=== PATIENT | female | born 1995 | race Two or more races ===

== ENCOUNTER → 2018-09-11 | Outpatient (CLI) | payer OTHER | LOC: OD 13:51 | PROVIDERS: ATTEND Family Medicine | DX: Z32.01 Encounter for pregnancy test, result positive (principal) | CPT/HCPCS: 81025 ==

== ENCOUNTER 2019-05-20 16:44 | Outpatient (CLI) | payer OTHER | END 2019-05-20 17:27 | disposition home or self-care (01) | LOC: LC 16:44 | PROVIDERS: ATTEND Obstetrics & Gynecology | DX: O48.0 Post-term pregnancy (principal); Z3A.40 40 weeks gestation of pregnancy | CPT/HCPCS: 59025 ==

== ENCOUNTER 2019-05-26 20:35 | Inpatient (IN) | payer BC, OTHER ==
[2019-05-26 21:18] LABS: APPEARANCE,URINE SLIGHTLY-CLOUDY; BILIRUBIN,URINE NEGATIVE (NEGATIVE); COLOR,URINE YELLOW; GLUCOSE, URINE NEGATIVE (NEGATIVE); KETONES,URINE NEGATIVE (NEGATIVE); LEUKOCYTE ESTERASE,URINE NEGATIVE (NEGATIVE); NITRITE,URINE NEGATIVE (NEGATIVE); PROTEIN,URINE NEGATIVE (NEGATIVE); URINE SPECIFIC GRAVITY 1.003; UROBILINOGEN,URINE NEGATIVE mg/dL (<2.0)
[2019-05-26 21:34] LABS: URINE AMPHETAMINES SCREEN NEGATIVE; URINE BARBITURATES SCREEN NEGATIVE; URINE BENZODIAZEPINES SCREEN NEGATIVE; URINE COCAINE SCREEN NEGATIVE; URINE MARIJUANA (THC) SCREEN NEGATIVE; URINE METHADONE SCREEN NEGATIVE; URINE PHENCYCLIDINE SCREEN NEGATIVE
[2019-05-26] MEDS ORDERED: RINGERS SOLUTION,LACTATED 1,000 ML IV PRN (21:40)
[2019-05-26] MEDS ORDERED: MAG HYDROX/AL HYDROX/SIMETH SUSP 30 ML UDCUP PO PRN (21:40)
[2019-05-26] MEDS ORDERED: RINGERS SOLUTION,LACTATED 300 ML IV ONE (21:40)
[2019-05-26] MEDS ORDERED: ACETAMINOPHEN 325 MG TABLET PO PRN (21:40)
[2019-05-26] MEDS ORDERED: PENICILLIN G POTASSIUM 5,000,000 UNIT in DEXTROSE 5%-WATER 100 ML IV ONE (21:40)
[2019-05-26] MEDS ORDERED: DINOPROSTONE 10 MG VAGINAL INSERT.SR PV ONE (21:40)
[2019-05-26] MEDS ORDERED: ZOLPIDEM TARTRATE 5 MG TABLET PO PRN (21:40)
[2019-05-26 22:18] LABS: ABSOLUTE BASOPHILS # (AUTO) 0.1 10^3/uL (0.0-0.2); ABSOLUTE EOSINOPHILS # (AUTO) 0.2 10^3/uL (0.0-0.6); ABSOLUTE LYMPHOCYTES (AUTO) 1.8 10^3/uL (0.5-4.7); ABSOLUTE MONOCYTES (AUTO) 0.6 10^3/uL (0.1-1.4); ABSOLUTE NEUT (AUTO) 6.4 10^3/uL (1.7-8.2); BASOPHILS % (AUTO) 0.6 % (0-2); EOSINOPHILS % (AUTO) 1.8 % (0-6); HEMATOCRIT 38.4 % (36.0-47.0); HEMOGLOBIN 13.4 g/dL (12.0-15.5); LYMPHOCYTES % (AUTO) 20.3 % (13-45); MEAN CORPUSCULAR HEMOGLOBIN 30.6 pg (27.0-33.4); MEAN CORPUSCULAR HGB CONC 34.9 g/dL (32.0-36.0); MEAN CORPUSCULAR VOLUME 88 fl (80-97); MONOCYTES % (AUTO) 6.8 % (3-13); PLATELET COUNT 221 10^3/uL (150-450); RED BLOOD COUNT 4.38 10^6/uL (3.72-5.28); RED CELL DISTRIBUTION WIDTH 14.6 % (11.5-14.0); SEGMENTED NEUTROPHILS % (AUTO) 70.5 % (42-78); TOTAL CELLS COUNTED % (AUTO) 100 %; WHITE BLOOD COUNT 9.1 10^3/uL (4.0-10.5)
[2019-05-26] MEDS ORDERED: DINOPROSTONE 10 MG VAGINAL INSERT.SR ONE (22:33)
[2019-05-26] MEDS ORDERED: MISOPROSTOL 0.2 MG TABLET ONE (22:58)
[2019-05-26] MEDS ORDERED: LIDOCAINE 1% INJ-PF (10 MG/ML) 30 ML SDV ONE (22:58)
[2019-05-26] MEDS ORDERED: OXYTOCIN/NORMAL SALINE 20 UNIT/1,000 ML RTUINJ ONE (22:58)
[2019-05-26] MEDS ORDERED: OXYTOCIN 10 UNIT/ML VIAL ONE (22:58)
[2019-05-26] MEDS ORDERED: ZOLPIDEM TARTRATE 5 MG TABLET ONE (23:38)
[2019-05-27] MEDS ORDERED: PENICILLIN G POTASSIUM 2,500,000 UNIT in DEXTROSE 5%-WATER 50 ML IV SCH (01:40)
[2019-05-27] MEDS ORDERED: HYDROMORPHONE HCL INJ/PF 2 MG/ML AMPULE IV ONE (05:59)
[2019-05-27] MEDS ORDERED: PROMETHAZINE HCL INJ 25 MG/1 ML VIAL IV ONE (06:00)
[2019-05-27] MEDS ORDERED: HYDROMORPHONE HCL INJ/PF 2 MG/ML AMPULE ONE (06:02)
[2019-05-27] MEDS ORDERED: PROMETHAZINE HCL INJ 25 MG/1 ML VIAL ONE (06:02)
--- NOTE | 2019-05-27 07:25 | Admission Physical ---
Datetime Report Generated by CPN: 05/27/2019 07:25 CURRENT ADMISSION Chief Complaint: Uterine Contractions; Scheduled Induction of Labor Indication for Induction: Post Dates Admit Impression : Term, Intrauterine ; Induction of Labor Admit Impression- Other: patient here for a r/o labor and during her evaluation the FHTs showed evidence of decel. Therefore Admit Plan: Admit to Unit; Initiate Labor Induction Protocol ALLERGIES Medication Allergies: Yes Medication Allergies: codeine (05/26/2019) Latex: No Latex Allergies Food Allergies: none Environmental Allergies: none OBSTETRICAL HISTORY EDC: 05/19/2019 00:00 : 1 Para: 0 Gestational Diabetes: No Rh Sensitization: No Incompetent Cervix: No AMANDA: No Infertility: No ART Treatment: No Uterine Anomaly: No IUGR: No Hx Previous C/S: No Macrosomia: No Hx Loss/Stillborn: No PIH: No Hx : No Placenta Previa/Abruption: No Depression/PP Depression: No PTL/PROM: No Post Hemorrhage: No Current Procedures: Ultrasound; NST Obstetrical History Comments: G1-Current SEE RECORDS Alcohol: No Marijuana : No Cocaine: No Other Illicit Drugs: No Cigarettes: Never Smoker. [id number] MEDICAL HISTORY Diabetes: No Blood Transfusion: No Pulmonary Disease (Asthma, TB): No Breast Disease: No Hypertension: No Motor Boss Surgery: No Heart Disease: No Hosp/Surgery: Yes Autoimmune Disorder: No Kidney Disease: No Abnormal Pap Smear: No Neuro/Epilepsy: No Psychiatric Disorders: No Other Medical Diseases: No Hepatitis/Liver Disease: No Significant Family History: No Varicosities/Phlebitis: No Trauma/Violence : No Thyroid Dysfunction: No Medical History Comments: Tooth Extraction, scoliosis INFECTIOUS HISTORY Gonorrhea: No Genital Herpes: No Chlamydia: No Tuberculosis: No Syphilis: No Hepatitis: No HIV/AIDS Exposure: No Rash or Viral Illness: No HPV: No PHYSICAL EXAM General: Normal HEENT: Normal Neurologic: Normal Thyroid: Normal Heart: Normal Lungs: Normal Breast: Normal Back: Normal Abdomen: Normal Genitourinary Exam: Normal Extremities: Normal DTRs: Normal Pelvic Type: Adequate VAGINAL EXAM Dilatation: 1 Effacement: 90 Station: -2 MEMBRANES Pooling: Negative Membranes: Intact FETUS A EGA: 41.1 Monitoring: External US FHR- Baseline: 150 Variability: Moderate 6-25bpm Accelerations: 15X15 Decelerations: Prolonged FHR Category: Category II Estimated Weight (gm): 3800 Presentation: Vertex Admit Comment: went ahead and admitted patient and placed cervidil for cervix ripening. she has had occasional decels that have been easily recoverable. will continue to watch cervidil removed at 645 this am. PLANS FOR LABOR AND DELIVERY Labor and Delivery: None Pain Management: Epidural Feeding Preference: Both Benefit of Breast Feed Discussed: Yes Circumcision: Yes INFORMED CONSENT Signature: with User ID: [email or web address]
[2019-05-27] MEDS ORDERED: PENICILLIN G POTASSIUM 5,000,000 UNIT in DEXTROSE 5%-WATER 100 ML IV ONE (08:00)
[2019-05-27] MEDS ORDERED: EPHEDRINE SULFATE INJ 50 MG/1 ML AMPULE ONE (08:24)
[2019-05-27] MEDS ORDERED: FENTANYL/BUPIVACAINE/NS/PF 300 MCG/150 ML RTUINJ EPI ONE (08:25)
[2019-05-27] MEDS ORDERED: BUPIVACAINE HCL 0.25 % INJ/PF (2.5 MG/1 ML) 30 ML VIAL ONE (08:25)
[2019-05-27] MEDS ORDERED: OXYTOCIN/NORMAL SALINE 20 UNIT/1,000 ML RTUINJ IV PRN ×2 (12:11→15:51)
[2019-05-27] MEDS: PENICILLIN G POTASSIUM 2,500,000 UNIT in DEXTROSE 5%-WATER 50 ML IV SCH ×2 (12:36→16:28)
[2019-05-27] MEDS ORDERED: BENZOCAINE/MENTHOL AEROSOL SPRAY 56 ML TOP PRN (15:51)
[2019-05-27] MEDS ORDERED: DIBUCAINE 1% OINTMENT 28 GM TP PRN (15:51)
[2019-05-27] MEDS ORDERED: MEASLES,MUMPS&RUBELLA VACC/PF 0.5 ML VIAL SUBCUT PRN (15:51)
[2019-05-27] MEDS ORDERED: DIPH/PERTUSS(ACELL)/TETANUS VAC/PF 0.5 ML SYR (>=10YO) IM PRN (15:51)
[2019-05-27] MEDS ORDERED: ACETAMINOPHEN 325 MG TABLET PO PRN (15:53)
[2019-05-27] MEDS ORDERED: IBUPROFEN 800 MG TABLET ONE (16:29)
[2019-05-27] MEDS: IBUPROFEN 800 MG TABLET PO SCH (16:31)
--- NOTE | 2019-05-27 16:37 | Delivery Summary ---
Del Sum A-C Datetime Report Generated by CPN: 05/27/2019 16:37 DELIVERY PERSONNEL DELIVERY PERSONNEL: [id number] Delivery Doctor:: Padmini Power CNM Nurse Fuller Brush Man Certified:: Padmini Power CNM Labor and Delivery Nurse:: Lizet Gillespie RNchildhood teacher Nurse:: FLORENTINO Wahl Nursery Nurse:: Emma Howard RN Instructional Paraprofessional/EDITOR MANAGING NEWSPAPER: Carol Johnson, ST Instructional Paraprofessional/EDITOR MANAGING NEWSPAPER: Veronica Esa DIRECTOR INDUSTRIAL MUSEUM MATERNAL INFORMATION Delivery Anesthesia: Epidural Medications After Delivery: Pitocin Bolus-Please Comment Delivery QBL: 539 Maternal Complications: None Provider Comments: of VMI,delivered BC, vigorous and crying in stable condition., Cord clamped and cut after one minute. Cord blood collected. Placenta S/C/I, ff w/ decreased lochia, IV Pitocin infusing. Repair of bilateral labial lacerations. Mother and baby left in stable condition, skin to skin. Pt plans to breastfeed. Apgars 9,9. QBL pending LABOR SUMMARY EDC: 05/19/2019 00:00 No. Babies in Womb: 1 Attempted: No Labor Anesthesia: Epidural LABOR INFORMATION Reason for Induction: Post Dates Onset of Labor: 05/27/2019 06:45 Complete Dilatation: 05/27/2019 14:50 Oxytocin: Induction Group B Beta Strep: Positive Antibiotics # of Doses: 2 Antibiotics Time of Last Dose: 1228 Name of Antibiotic Given: penicillin Steroids Given: None Reason Steroids Not Administered: Not Applicable MEMBRANES Membranes Rupture Method: Artificial Rupture of Membranes: 05/27/2019 12:46 Length of Rupture (hr): 2.62 Amniotic Fluid Color: Light Meconium Amniotic Fluid Amount: Scant Amniotic Fluid Odor: None STAGES OF LABOR Stage 1 hr: 8 Stage 1 min: 5 Stage 2 hr: 0 Stage 2 min: 33 Stage 3 hr: 0 Stage 3 min: 4 Total Time in Labor hr: 8 Total Time in Labor min: 42 VAGINAL DELIVERY Episiotomy: None Laceration #1: Vaginal Laceration Extension #1: First Degree Laceration Repair: Yes Laceration Repair Note: Bilateral labial lacs repaired using 3.0 vicryl, pt tolerated well Sponge Count Correct: Yes Sharps Count Correct: Yes BABY A INFORMATION Delivery Date/Time: 05/27/2019 15:23 Method of Delivery: Vaginal Nurse Controlled Delivery: No Born in Route : No : N/A Forceps: N/A Vacuum Extraction: N/A Shoulder Dystocia : No PRESENTATION/POSITION BABY A Presentation: Cephalic Cephalic Presentation: Vertex Vertex Position: Left Occipital Anterior Breech Presentation: N/A PLACENTA INFORMATION BABY A Placenta Delivery Time : 05/27/2019 15:27 Placenta Method of Delivery: Spontaneous Placenta Status: Delivered SCORES BABY A Heart Rate 1 min: >100 bpm Resp Effort 1 min: Good Cry Reflex Irritability 1 min: Cough or Sneeze or Pulls Away Muscle Tone 1 min: Active Motion Color 1 min: Body [place], Extremities Blue Resuscitation Effort 1 min: Tactile Stimulation SCORE 1 MIN: 9 Heart Rate 5 min: >100 bpm Resp Effort 5 min: Good Cry Reflex Irritability 5 min: Cough or Sneeze or Pulls Away Muscle Tone 5 min: Active Motion Color 5 min: Body [place], Extremities Blue Resuscitation Effort 5 min: Tactile Stimulation SCORE 5 MIN: 9 INFANT INFORMATION BABY A Gestational Age at Delivery: 41.1 Gestational Status: Late Term- 41- 41.6 Weeks Infant Outcome : Liveborn Condition : Stable Sex: Male IDENTIFICATION BABY A Infant Verification Date/Time: 05/27/2019 15:34 ID Band Number: [id number] Mother's Name Verified: Yes Infant RN Verifying : D Bellavance RN/A Mobile RN WEIGHT/LENGTH BABY A Birthweight (gm): 3100 Weight (lb): 6 Weight (oz): 13 Infant Length (in): 19.50 Infant Length (cm): 49.53 CORD INFORMATION BABY A No. Cord Vessels: 3 Nuchal Cord : N/A Cord Blood Taken: Yes-For Storage (Mom's Blood type +) Suction: Mouth; Nose ASSESSMENT BABY A Complications: Multiple Late Decels; Multiple Variable Decels Physical Findings at Delivery: Molding of the Head Infant Respirations: Appears Normal Skin to Skin: Yes Skin to Skin Time (min): 60 Lube Worker/ALS Called : Yes Care By: Sallie Howard RN Transferred To: Remains with Mother SIGNATURES Assignment: Julianna Reeves MD Signature: with User ID: [email or web address] : with User ID: [email or web address]
[2019-05-27] MEDS: DOCUSATE SODIUM 100 MG CAPSULE PO SCH (18:27)
[2019-05-27] MEDS: FERROUS SULFATE 325 MG TABLET PO SCH (18:27)
[2019-05-28] MEDS: IBUPROFEN 800 MG TABLET PO SCH ×4 (01:45→22:09)
[2019-05-28 07:00] LABS: HEMATOCRIT 28.3 % (36.0-47.0); MEAN CORPUSCULAR HEMOGLOBIN 30.7 pg (27.0-33.4); MEAN CORPUSCULAR HGB CONC 35.2 g/dL (32.0-36.0); MEAN CORPUSCULAR VOLUME 87 fl (80-97); PLATELET COUNT 160 10^3/uL (150-450); RED BLOOD COUNT 3.24 10^6/uL (3.72-5.28); RED CELL DISTRIBUTION WIDTH 14.6 % (11.5-14.0); WHITE BLOOD COUNT 13.7 10^3/uL (4.0-10.5)
[2019-05-28] MEDS: PRENATAL VITAMIN W DHA CAPSULE PO SCH (09:45)
[2019-05-28] MEDS: FERROUS SULFATE 325 MG TABLET PO SCH ×2 (09:45→17:33)
[2019-05-28] MEDS: DOCUSATE SODIUM 100 MG CAPSULE PO SCH ×2 (09:45→17:33)
[2019-05-28] MEDS: SENNOSIDES/DOCUSATE 8.6-50 MG 1 EACH TABLET PO SCH (09:47)
--- NOTE | 2019-05-28 10:25 | PDOC PROGRESS REPORT ---
Subjective-OB Progress Note for:: 05/28/19 Subjective: 23yo G1 now P1 s/p ppd1. Pt ambulating and voiding without difficulty. Reports pain well controlled with medications. No concerns today. Physical Exam (OB) Vital Signs: Temp Pulse Resp BP Pulse Ox 98.0 F 63 16 90/40 L 99 05/28/19 07:30 05/28/19 07:30 05/28/19 07:30 05/28/19 07:30 05/28/19 07:30 Intake & Output 05/27/19 05/28/19 05/29/19 06:59 06:59 06:59 Intake Total 800 Output Total 1100 Balance -1100 800 Weight 83.1 kg - General General Appearance: Appears well In distress: None - PIH/Pre-Eclampsia DTR's: 1 + Clonus: Negative Headache: Absent Epigastric Pain: No Visual Changes: No - Episiotomy/Laceration Site Condition: Well Approximated - Lochia Lochia Amount: Small 10-25 ml Lochia Color: Rubra/Red - Abdomen Description: Soft, Round Fundal Description: Firm, Midline Fundal Height: u/u - u/2 - Respiratory Respiratory Status: No respiratory distress - Extremities Upper extremity: Normal inspection Lower extremities: Normal inspection - Neurological Cognition: Normal Orientation: AAOx4 - Psychological Associated symptoms: Normal affect, Normal mood Objective-Diagnostic Laboratory: 05/28/19 06:42 05/28/19 06:42 WBC 13.7 H RBC 3.24 L Hgb 10.0 L D Hct 28.3 L MCV 87 MCH 30.7 MCHC 35.2 RDW 14.6 H Plt Count 160 Assessment and Plan(PN) - Assessment and Plan (1) Vaginal delivery Is this a current diagnosis for this admission?: Yes Plan: Routine pp care (2) Obstetric labial laceration, delivered, current hospitalization Is this a current diagnosis for this admission?: Yes Plan: continue to monitor for s/s of infection (3) Acute blood loss anemia Is this a current diagnosis for this admission?: Yes Plan: increase dietary iron and FeSO4 BID - Time Spent with Patient Time with patient: Less than 15 minutes Medications reviewed and adjusted accordingly: Yes - Disposition Anticipated Discharge: Home Within: within 24 hours
[2019-05-29] MEDS: IBUPROFEN 800 MG TABLET PO SCH ×2 (05:42→13:48)
[2019-05-29 08:28] VITALS: BP 108/58
[2019-05-29] MEDS: DOCUSATE SODIUM 100 MG CAPSULE PO SCH (09:26)
[2019-05-29] MEDS: PRENATAL VITAMIN W DHA CAPSULE PO SCH (09:26)
[2019-05-29] MEDS: FERROUS SULFATE 325 MG TABLET PO SCH (09:26)
[2019-05-29] MEDS: SENNOSIDES/DOCUSATE 8.6-50 MG 1 EACH TABLET PO SCH (09:26)
--- NOTE | 2019-05-29 09:56 | PDOC DISCHARGE SUMMARY ---
Impression - Admit/DC Date/PCP Admission Date/Primary Care Provider: 05/26/19 21:55 JAYE COLEMAN MD Discharge Date: 05/29/19 - Discharge Diagnosis (1) Acute blood loss anemia Is this a current diagnosis for this admission?: Yes (2) Obstetric labial laceration, delivered, current hospitalization Is this a current diagnosis for this admission?: Yes (3) Vaginal delivery Is this a current diagnosis for this admission?: Yes - Additional Information Resuscitation Status: Full Code Discharge Diet: Regular Discharge Activity: Activity As Tolerated, Pelvic Rest Referrals: JAYE COLEMAN MD [Primary Care Provider] - Prescriptions: Ibuprofen [Motrin 800 mg Tablet] 800 mg PO Q8 #60 tablet Home Medications: Vit No.130/Iron/Folic [ Tablet] 1 each PO DAILY 05/20/19 Ibuprofen [Motrin 800 mg Tablet] 800 mg PO Q8 #60 tablet 05/29/19 Results Laboratory Results: WBC 13.7 10^3/uL (4.0-10.5) H 05/28/19 06:42 RBC 3.24 10^6/uL (3.72-5.28) L 05/28/19 06:42 Hgb 10.0 g/dL (12.0-15.5) L D 05/28/19 06:42 Hct 28.3 % (36.0-47.0) L 05/28/19 06:42 MCV 87 fl (80-97) 05/28/19 06:42 MCH 30.7 pg (27.0-33.4) 05/28/19 06:42 MCHC 35.2 g/dL (32.0-36.0) 05/28/19 06:42 RDW 14.6 % (11.5-14.0) H 05/28/19 06:42 Plt Count 160 10^3/uL (150-450) 05/28/19 06:42 Lymph % (Auto) 20.3 % (13-45) 05/26/19 22:00 [place] % (Auto) 6.8 % (3-13) 05/26/19 22:00 Eos % (Auto) 1.8 % (0-6) 05/26/19 22:00 Baso % (Auto) 0.6 % (0-2) 05/26/19 22:00 Absolute Neuts (auto) 6.4 10^3/uL (1.7-8.2) 05/26/19 22:00 Absolute Lymphs (auto) 1.8 10^3/uL (0.5-4.7) 05/26/19 22:00 Absolute Monos (auto) 0.6 10^3/uL (0.1-1.4) 05/26/19 22:00 Absolute Eos (auto) 0.2 10^3/uL (0.0-0.6) 05/26/19 22:00 Absolute Basos (auto) 0.1 10^3/uL (0.0-0.2) 05/26/19 22:00 Seg Neutrophils % 70.5 % (42-78) 05/26/19 22:00 Urine Color YELLOW 05/26/19 20:55 Urine Appearance SLIGHTLY-CLOUDY 05/26/19 20:55 Urine pH 6.0 (5.0-9.0) 05/26/19 20:55 Ur Specific [place] 1.003 05/26/19 20:55 Urine Protein NEGATIVE mg/dL (NEGATIVE) 05/26/19 20:55 Urine Glucose (UA) NEGATIVE mg/dL (NEGATIVE) 05/26/19 20:55 Urine Ketones NEGATIVE mg/dL (NEGATIVE) 05/26/19 20:55 Urine Blood MODERATE (NEGATIVE) H 05/26/19 20:55 Urine Nitrite NEGATIVE (NEGATIVE) 05/26/19 20:55 Urine Bilirubin NEGATIVE (NEGATIVE) 05/26/19 20:55 Urine Urobilinogen NEGATIVE mg/dL (<2.0) 05/26/19 20:55 Ur Leukocyte Esterase NEGATIVE (NEGATIVE) 05/26/19 20:55 Urine Ascorbic Acid NEGATIVE (NEGATIVE) 05/26/19 20:55 Membranes Rupture NEGATIVE (NEGATIVE) 05/26/19 21:00 Urine Opiates Screen NEGATIVE 05/26/19 20:55 Urine Methadone Screen NEGATIVE 05/26/19 20:55 Ur Barbiturates Screen NEGATIVE 05/26/19 20:55 Ur Phencyclidine Scrn NEGATIVE 05/26/19 20:55 Ur Amphetamines Screen NEGATIVE 05/26/19 20:55 U Benzodiazepines Scrn NEGATIVE 05/26/19 20:55 Urine Cocaine Screen NEGATIVE 05/26/19 20:55 U Marijuana (THC) Screen NEGATIVE 05/26/19 20:55 RPR NONREACTIVE (NONREACTIVE) 05/26/19 22:00 Blood Type B POSITIVE 05/26/19 22:00 Antibody Screen NEGATIVE 05/26/19 22:00
== END 2019-05-29 17:25 | disposition home or self-care (01) | DRG 806 ==
LOC: LC 20:35 → LR 21:55 → 2S 05-27 18:19
PROVIDERS: ADMIT Obstetrics & Gynecology; ATTEND Advanced Practice Midwife
PROC: 10E0XZZ Delivery of Products of Conception, External Approach (ICD-10-PCS; principal; 2019-05-27)
PROC: 0HQ9XZZ Repair Perineum Skin, External Approach (ICD-10-PCS; 2019-05-27)
PROC: 10907ZC Drainage of Amniotic Fluid, Therapeutic from Products of Conception, Via Natural or Artificial Opening (ICD-10-PCS; 2019-05-27)
DX: O76 Abnormality in fetal heart rate and rhythm complicating labor and delivery (principal); D62 Acute posthemorrhagic anemia; O70.0 First degree perineal laceration during delivery; O99.02 Anemia complicating childbirth; O48.0 Post-term pregnancy; O99.824 Streptococcus B carrier state complicating childbirth; O77.0 Labor and delivery complicated by meconium in amniotic fluid; Z88.5 Allergy status to narcotic agent; Z3A.41 41 weeks gestation of pregnancy; Z37.0 Single live birth
CPT/HCPCS: 36415; 80307; 81005; 84112; 85025; 85027; 86592; 86850; 86900; 86901; 94760; J1170; J2540; J2550; J2590; J3010; J3490; J7060